=== PATIENT | female | born 1955 ===

== ENCOUNTER 2017-08-16 19:48 | Emergency (ER) | payer MEDICAID, OTHER ==
[2017-08-16 19:48] VITALS: BMI 31.0
[2017-08-16] MEDS ORDERED: Albuterol-Ipratrop 3 mg / 0.5 (3 ml) UD ONE ×2 (20:07→20:55)
--- NOTE | 2017-08-16 20:41 | C.PDOC ---
History Of Present Illness Patient presents to the ER with a complaint of SOB worsening over the past 3 days. Patient states she quit smoking 3 months ago. Patient is currently speaking in complete sentences and is tolerating PO. Denies fever or chills. Time Seen by Provider: 08/16/17 20:41 Chief Complaint (Nursing): Shortness Of Breath History Per: Patient History/Exam Limitations: no limitations Onset/Duration Of Symptoms: Days Current Symptoms Are (Timing): Still Present Initiating Event: Other (Not known) Current Respiratory Medications: None Severity: Moderate Pain Scale Rating Of: 4 Associated Symptoms: Other (SOB). denies: Fever, Chills Recent travel outside of the [place]: No Past Medical History Reviewed: Historical Data, Nursing Documentation, Vital Signs Vital Signs: Last Vital Signs Temp 98.3 F 08/16/17 20:07 Pulse 122 H 08/16/17 22:23 Resp 16 08/16/17 22:23 BP 104/51 L 08/16/17 22:23 Pulse Ox 95 08/16/17 22:23 - Medical History PMH: Asthma, Hyperthyroidism Surgical History: Cholecystectomy - [facility] Procedures CORONAR ARTERIOGR-2 CATH (09/22/13) LEFT HEART CARDIAC CATH (09/22/13) LT HEART ANGIOCARDIOGRAM (09/22/13) SOFT TISSUE INCISION NEC (01/11/14) Family History: States: No Known Family Hx - Social History Hx Tobacco Use: Yes Hx Alcohol Use: No Hx Substance Use: No - Immunization History Hx Tetanus Toxoid Vaccination: Yes Hx Influenza Vaccination: Yes Hx Pneumococcal Vaccination: Yes Review Of Systems Constitutional: Negative for: Fever, Chills Cardiovascular: Negative for: Chest Pain, Palpitations Respiratory: Positive for: Shortness of Breath Gastrointestinal: Negative for: Nausea, Vomiting Physical Exam - Physical Exam Appears: Non-toxic Skin: Warm, Dry Head: Normacephalic Oral Mucosa: Moist Chest: Symmetrical, No Tenderness Cardiovascular: Rhythm Regular Respiratory: No Rales, No Rhonchi, Wheezing (Scattered) Gastrointestinal/Abdominal: Soft, No Tenderness Neurological/Psych: Oriented x3 ED Course And Treatment - Laboratory Results Result Diagrams: 08/16/17 20:56 08/16/17 20:56 ECG: Interpreted By Me, Viewed By Me ECG Rhythm: Sinus Rhythm (106), Nonspecific Changes O2 Sat by Pulse Oximetry: 99 (Room air) Pulse Ox Interpretation: Normal - Radiology CXR: Interpreted by Me, Viewed By Me CXR Interpretation: No: Infiltrates, Fracture, Pnemothorax Progress Note: Blood work, EKG, and CXR ordered. Duoneb and solumedrol administered. Medical Decision Making Medical Decision Making: Upon provider reevaluation patient is feeling better, is medically stable, and requires no further treatment in the ED at this time. Patient will be discharged home with Rx for prednisone and zithromax . Counseling was provided and all questions were answered regarding diagnosis and need for follow up with dr webster. There is agreement to discharge plan. Return if symptoms persist or worsen. Disposition Counseled Patient/Family Regarding: Studies Performed, Diagnosis, Need For Followup, Rx Given - Disposition Referrals: [facility] [Staff Provider] - Disposition: HOME/ ROUTINE Disposition Time: 20:41 Condition: FAIR Prescriptions: Azithromycin [Zithromax Tri-Claudio] 500 mg PO DAILY #3 tablet Prednisone [Deltasone] 20 mg PO DAILY #5 tablet Instructions: Asthma, Adult (DC) Forms: [facility] [employer] (Thai) - Clinical Impression Clinical Impression: Asthma exacerbation - Scribe Statement The provider has reviewed the documentation as recorded by the Scribe Scott Campbell All medical record entries made by the Scribe were at my direction and personally dictated by me. I have reviewed the chart and agree that the record accurately reflects my personal performance of the history, physical exam, medical decision making, and the department course for this patient. I have also personally directed, reviewed, and agree with the discharge instructions and disposition.
[2017-08-16 20:58] LABS: BASO % 0.2 % (0.0-2.0); HEMOGLOBIN 14.3 g/dL (11.0-16.0); LYMPH # 1.6 K/uL (1.0-4.3); LYMPH % 11.1 % (20.0-40.0); MEAN CORPUSCULAR HEMOGLOBIN 31.1 pg (27.0-31.0); MEAN CORPUSCULAR HGB CONC 33.5 g/dL (33.0-37.0); MEAN PLATELET VOLUME 9.9 fL (7.2-11.7); MONO # 0.5 K/uL (0.0-0.8); MONO % 3.2 % (0.0-10.0); NEUT # 12.2 K/uL (1.8-7.0); NEUT % 85.5 % (50.0-75.0); RBC 4.58 Mil/uL (3.80-5.20); RED CELL DISTRIBUTION WIDTH 13.8 % (11.5-14.5); WHITE BLOOD COUNT 14.2 K/uL (4.8-10.8)
[2017-08-16] MEDS: Albuterol-Ipratrop 3 mg / 0.5 (3 ml) UD IH SCH ×2 (21:03→21:29)
[2017-08-16 21:06] LABS: ARTERIAL BLOOD GAS HCO3 26.6 mmol/L (21-28); ARTERIAL BLOOD GAS O2 SAT 97.3 % (95-98); ARTERIAL BLOOD GAS PCO2 43 mm/Hg (35-45); ARTERIAL BLOOD GAS PH 7.41 (7.35-7.45); ARTERIAL BLOOD GAS PO2 70 mm/Hg (80-100); ARTERIAL BLOOD GAS TCO2 28.6 mmol/L (22-28)
[2017-08-16 21:12] LABS: ALB/GLOB RATIO 1.3 (1.0-2.1); ALBUMIN 4.4 g/dL (3.5-5.0); ALT/SGPT 29 U/L (9-52); AST/SGOT 27 U/L (14-36); BLOOD UREA NITROGEN 19 mg/dL (7-17); CALCIUM 9.8 mg/dl (8.6-10.4); GFR AFRICAN-AMERICAN > 60; GFR NON-AFRICAN AMERICAN > 60
[2017-08-16 22:56] VITALS: BP 110/59; PULSE 110; RESP 21; TEMP 98; O2SAT 95
--- NOTE | 2017-08-17 12:05 | RAD ---
Chest x-ray single frontal view History: Shortness of breath. Comparison: 01/11/2014 Findings: Mild venous congestion. Biapical pleural thickening with upper lobe granulomatous changes. Right hilar prominence. Heart size within normal limits. Degenerative changes in spine shoulders Impression: Mild venous congestion. Biapical pleural thickening with upper lobe granulomatous changes. Right hilar prominence. Heart size within normal limits. Degenerative changes in spine shoulders
--- NOTE | 2017-08-17 22:32 | CARD ---
APPROVED REPORT EKG Measurement Heart [id number] OR [id number] <Conclusion> Sinus tachycardia Otherwise normal ECG
== END 2017-08-16 22:56 | disposition home or self-care (01) ==
LOC: C.ER 19:48
DX: J45.901 Unspecified asthma with (acute) exacerbation (principal); E05.90 Thyrotoxicosis, unspecified without thyrotoxic crisis or storm; Z72.0 Tobacco use
CPT/HCPCS: 71045; 80053; 82803; 85025; 93005; 94640; 96374; 99285; J2930

== ENCOUNTER 2018-03-09 09:33 | Outpatient (CLI) | payer OTHER | END 2018-03-09 09:34 | disposition home or self-care (01) | LOC: C.PAT 09:33 | DX: R10.9 Unspecified abdominal pain (principal) ==

== ENCOUNTER 2018-03-15 10:30 | Day surgery (SDC) | payer OTHER ==
[2018-03-09 10:05] VITALS: BMI 31.6
[2018-03-15] MEDS ORDERED: Propofol 10 mg/ml Inj (20 ML) ONE (12:40)
[2018-03-15] MEDS ORDERED: Midazolam 2 MG/2 ML VIAL ONE (12:40)
[2018-03-15] MEDS ORDERED: Bupivacaine 0.25% 20 ML INJ IJ ONE (12:44)
[2018-03-15] MEDS ORDERED: Lidocaine/Epinephrine 1% 1:100000 10 ML IJ ONE (12:45)
[2018-03-15] MEDS ORDERED: ceFAZolin 1 gm in NS 2 GM/200 ML BAG IVPB ONE (13:04)
--- NOTE | 2018-03-15 15:09 | PCM.SURG1 ---
Surgeon's Initial Post Op Note - Surgeon's Notes Surgeon: Dr. Barrett Fish Net Maker: Dr. Ellison Type of Anesthesia: General Endo Pre-Operative Diagnosis: Abdominal pain Operative Findings: see operative note Post-Operative Diagnosis: same Operation Performed: exploratory laparoscopy with lysis of adhesions Specimen/Specimens Removed: none Estimated Blood Loss: EBL {In ML}: 10 Blood Products Given: N/A Drains Used: No Drains Post-Op Condition: Good Date of Surgery/Procedure: 03/15/18 Time of Surgery/Procedure: 15:08
[2018-03-15] MEDS ORDERED: Oxycodone/Acetaminophen 5/325 mg Tab PO PRN (15:11)
[2018-03-15] MEDS ORDERED: HYDROmorphone 0.5 mg/0.5 ml ISec IVP PRN (15:19)
[2018-03-15] MEDS ORDERED: Lactated Ringer's 500 ML IV ONE (16:35)
[2018-03-15 16:52] VITALS: O2SAT 98
[2018-03-15 17:03] VITALS: PULSE 89; RESP 9; TEMP 98.3
[2018-03-15 18:39] VITALS: BP 125/76
--- NOTE | 2018-03-16 01:24 | OP ---
PROCEDURE DATE: 03/15/2018 PREOPERATIVE DIAGNOSES: 1. Recurrent abdominal pain. 2. Possible appendicolith. 3. Postoperative adhesion due to previous surgery. POSTOPERATIVE DIAGNOSES: 1. Recurrent abdominal pain. 2. Possible appendicolith. 3. Postoperative adhesion due to previous surgery. PROCEDURE DONE: 1. Laparoscopic enterolysis and extensive lysis of adhesion. 2. Laparoscopic mobilization of the right colon. SURGEON: Andrea Barrett MD ANESTHESIA: General endotracheal tube anesthesia. ESTIMATED BLOOD LOSS: Around 10 mL. DRAINS: None. PATHOLOGY: None. COMPLICATIONS: None. INTRAOPERATIVE FINDINGS: The patient had a staple line bunched up like a small . There was no appendix or appendicolith identified. The patient had extensive peritoneal as well as colonic adhesion to the anterior abdominal wall. An extensive enterolysis and lysis of adhesion was done and the right side of the colon was also mobilized, and on intraoperative steps, this is a 62-year-old female who was diagnosed with recurrent abdominal pain and the patient had a CT scan that was suggestive of appendicolith with possible remaining appendix, and the patient was consented for the laparoscopic exploration and possible appendectomy and enterolysis. DESCRIPTION OF PROCEDURE: The patient was brought to the OR, placed supine on operating table. After induction of anesthesia, the abdomen was prepped and draped in the usual sterile fashion. A supraumbilical transverse incision was made. Using the open technique, peritoneal cavity was entered. Pneumo was created. Another 5 mm port was placed in the right upper quadrant and extensive lysis of adhesion was done in order to enter the pelvis as well as the lower abdomen and now another two 5 mm as well as 12 mm port was placed in the lower abdomen as well as the left lower quadrant. Grasper and dissector were introduced. Further lysis of adhesion was done and the patient was found to have bunched up clips surrounding the end of the colon. The right colon as well as cecum was completely mobilized for further identification of the anatomy and there was no appendix identified and there was no appendicolith identified. The bunched up clips was circulation sales representative of possible appendicolith and further dissection was done to make sure all the site of the cecum had no other attachment and there was no other abnormality identified. There were some fluid in the pelvis that was suctioned irrigated, and all the ports were taken out under vision. Pneumo was deflated, umbilical port site was closed in two layers, the fascia with 0 Vicryl interrupted suture, skin with 4-0 Monocryl and dry sterile dressing was placed. The patient tolerated the procedure well. Count of instrument and gauze was correct. There was no apparent complication. The patient was extubated in OR, sent to the postanesthesia care unit in stable condition. Andrea Barrett MD
== END 2018-03-15 18:53 | disposition home or self-care (01) ==
LOC: C.SDS 10:30
PROVIDERS: ATTEND Surgery Surgical Critical Care
DX: K66.0 Peritoneal adhesions (postprocedural) (postinfection) (principal); E78.5 Hyperlipidemia, unspecified; J45.909 Unspecified asthma, uncomplicated; E03.9 Hypothyroidism, unspecified
CPT/HCPCS: 44180; J0690; J1170; J2250; J2405; J2704; J3010; J7030; J7120